=== PATIENT | female | born 1955 | race Caucasian/White ===

== ENCOUNTER → 2017-08-24 | Outpatient (CLI) | payer OTHER ==
[~2017-08-24] MED LIST: BYSTOLIC 5 MG5 M1 PO; CIPROFLOXACIN500 M1 PO; LORTAB 5 MG/5001 TA1 PO; PRILOSEC 20 MG20 MG PO; XANAX 0.5 MG0.5 MG PO
== END ==
LOC: ULTRA 13:53
DX: N28.1 Cyst of kidney, acquired (principal); R16.0 Hepatomegaly, not elsewhere classified; Z90.49 Acquired absence of other specified parts of digestive tract; Z90.710 Acquired absence of both cervix and uterus

== ENCOUNTER → 2017-10-15 | Outpatient (CLI) | payer OTHER ==
[2017-10-15 09:06] LABS: CREATININE 1.1 mg/dL (0.6-1.0)
== END ==
LOC: LABMALL 08:20 → CAT 08:20
PROVIDERS: Family Medicine
DX: M47.896 Other spondylosis, lumbar region (principal); M48.061 Spinal stenosis, lumbar region without neurogenic claudication; R01.1 Cardiac murmur, unspecified